=== PATIENT | female | born 1960 ===

== ENCOUNTER 2021-08-15 15:19 | Emergency (ER) | payer OTHER ==
[2021-08-15] MEDS ORDERED: Aspirin 81 MG Tab.Chew PO ONE (15:48)
[2021-08-15] MEDS ORDERED: Sodium Chloride 0.9% 10 ML Syringe FLUSH PRN (15:48)
== END 2021-08-15 19:42 | disposition home or self-care (01) ==
LOC: JD.ED 15:19
DX: R07.9 Chest pain, unspecified (principal); Z88.8 Allergy status to other drugs, medicaments and biological substances
CPT/HCPCS: 36415; 71045; 80053; 84484; 85025; 85379; 93005; 99285; A9270; 93010; J3490